=== PATIENT | male | born 1970 | race African-American/Black ===

== ENCOUNTER 2022-09-28 09:02 | Inpatient (IN) | payer OTHER ==
[2022-09-28 09:54] VITALS: BMI 24.6
[2022-09-28 10:11] LABS: VENOUS BASE EXCESS 5.5 mmol/L (-2-2); VENOUS O2 SATURATION 92.7 % (70-80); VENOUS PCO2 37.1 mmHg (38-52); VENOUS PH 7.506 (7.310-7.410)
[2022-09-28 10:17] LABS: BASO % 0.7 % (0-2.0); EOS % 0.7 % (0-4.5); HEMATOCRIT 37.4 % (35.4-49); HEMOGLOBIN 12.4 GM/dL (11.7-16.9); LYMPH % 8.5 % (8-40); MCH 26.1 pg (25.7-33.7); MCHC 33.1 g/dl (32.0-35.9); MEAN CELL VOLUME 78.9 fl (80-96); MEAN PLT VOLUME 8.9 fl (7.5-11.1); MONO % 5.1 % (3.8-10.2); PLATELET COUNT 329 10^3/uL (134-434); RBC 4.74 M/mm3 (4.00-5.60); RDW 15.6 % (11.9-15.9); WHITE BLOOD COUNT 11.7 K/mm3 (4.0-10.0)
[2022-09-28] MEDS ORDERED: LOSARTAN POTASSIUM 50 MG TABLET ONE ×2 (10:39→10:50)
[2022-09-28] MEDS ORDERED: amLODIPine BESYLATE 10 MG TABLET (FP) ONE ×2 (10:39→10:50)
[2022-09-28 10:40] LABS: EPI CELLS 4 /uL (0-25.1); HYALINE CASTS 1 /uL (0-3.1); PH,URINE 8.5 (5.0-8.0); URINE APPEARANCE CLEAR; URINE BACTERIA >9,000 /uL (0-1359); URINE BILIRUBIN NEGATIVE (NEGATIVE); URINE COLOR YELLOW; URINE GLUCOSE (UA) NEGATIVE (NEGATIVE); URINE KETONE NEGATIVE (NEGATIVE); URINE LEUK ESTERASE 2+ (NEGATIVE); URINE NITRITE NEGATIVE (NEGATIVE); URINE PROTEIN 1+ (NEGATIVE); URINE RBC 43 /uL (0-23.9); URINE UROBILINOGEN 0.2 mg/dL (0.2-1.0); URINE WBC 143 /uL (0-25.8)
[2022-09-28 10:44] LABS: POTASSIUM 3.6 mmol/L (3.5-5.1)
[2022-09-28] MEDS ORDERED: LOSARTAN POTASSIUM 50 MG TABLET PEG ONE (10:45)
[2022-09-28] MEDS ORDERED: amLODIPine BESYLATE 10 MG TABLET (FP) PEG ONE (10:45)
[2022-09-28 10:46] LABS: ALBUMIN 3.5 g/dl (3.4-5.0); BLOOD UREA NITROGEN 18.2 mg/dL (7-18); CALCIUM 9.9 mg/dL (8.5-10.1); MAGNESIUM 1.9 mg/dL (1.8-2.4)
[2022-09-28 10:51] LABS: BILIRUBIN,TOTAL 0.7 mg/dL (0.2-1); TOT PROT 7.4 g/dl (6.4-8.2)
[2022-09-28] MEDS ORDERED: ASPIRIN 81 MG CHEWABLE TABLETS PEG ONE (11:20)
[2022-09-28] MEDS ORDERED: CEFTRIAXONE 1,000 MG in DEXTROSE 5%-WATER - 50 ML IVPB ONE (11:20)
[2022-09-28] MEDS ORDERED: ACETAMINOPHEN 1000 MG/100 ML BAG IVPB ONE (11:20)
[2022-09-28] MEDS ORDERED: ACETAMINOPHEN INJECTION 100 ML IVPB ONE (11:45)
[2022-09-28] MEDS ORDERED: CEFTRIAXONE 1 GM/50 ML BAG ONE (11:45)
[2022-09-28] MEDS ORDERED: ASPIRIN 81 MG CHEWABLE TABLETS ONE ×3 (11:45→15:45)
[2022-09-28] MEDS ORDERED: FAMOTIDINE 10 MG/ML VIAL IVPB ONE (11:46)
[2022-09-28] MEDS ORDERED: FAMOTIDINE 20 MG/50 ML IVPB 20 MG/50 ML MG IVPB ONE (12:13)
[2022-09-28] MEDS: LOSARTAN POTASSIUM 50 MG TABLET GT SCH (15:38)
[2022-09-28] MEDS ORDERED: hydrALAZINE HCL 25 MG TABLET (FP) ONE (15:43)
[2022-09-28] MEDS ORDERED: BACLOFEN 10 MG TABLET (FP) ONE (15:44)
[2022-09-28] MEDS ORDERED: hydrALAZINE HCL 50 MG TABLET (FP) ONE (15:44)
[2022-09-28] MEDS: hydrALAZINE HCL 25 MG TABLET (FP) GT SCH ×3 (15:52→22:45)
[2022-09-28] MEDS: ASPIRIN 81 MG CHEWABLE TABLETS GT SCH (15:53)
[2022-09-28] MEDS: BACLOFEN 10 MG TABLET (FP) GT SCH ×2 (15:53→22:45)
[2022-09-28] MEDS ORDERED: levETIRAcetam 500 MG/5 ML INJECTION VIAL IVPB ONE ×2 (19:18→22:15)
[2022-09-28] MEDS ORDERED: TAMSULOSIN HCL 0.4 MG CAP PO SCH (22:00)
[2022-09-28] MEDS: ATORVASTATIN CA 40 MG TABLET (FP) GT SCH (22:45)
[2022-09-28] MEDS: FAMOTIDINE 20 MG/2.5 ML ORAL LIQUID GT SCH (22:45)
[2022-09-28] MEDS: HEPARIN NA (PORCINE) 5,000 UNITS/ML 1ML VIAL SQ SCH (22:46)
[2022-09-29] MEDS: BACLOFEN 10 MG TABLET (FP) GT SCH ×3 (06:04→21:41)
[2022-09-29] MEDS: hydrALAZINE HCL 25 MG TABLET (FP) GT SCH ×3 (06:04→21:42)
[2022-09-29 08:21] LABS: BASO % 0.9 % (0-2.0); EOS % 2.1 % (0-4.5); HEMATOCRIT 37.7 % (35.4-49); HEMOGLOBIN 12.1 GM/dL (11.7-16.9); LYMPH % 9.7 % (8-40); MCH 26.3 pg (25.7-33.7); MCHC 32.2 g/dl (32.0-35.9); MEAN CELL VOLUME 81.6 fl (80-96); MEAN PLT VOLUME 10.1 fl (7.5-11.1); NEUT % 80.3 % (42.8-82.8); PLATELET COUNT 305 10^3/uL (134-434); RBC 4.62 M/mm3 (4.00-5.60); RDW 15.8 % (11.9-15.9); WHITE BLOOD COUNT 8.9 K/mm3 (4.0-10.0)
[2022-09-29 08:45] LABS: POTASSIUM 3.5 mmol/L (3.5-5.1)
[2022-09-29 08:47] LABS: CALCIUM 9.7 mg/dL (8.5-10.1)
[2022-09-29 08:48] LABS: ALBUMIN 3.3 g/dl (3.4-5.0); BLOOD UREA NITROGEN 16.7 mg/dL (7-18)
[2022-09-29 08:53] LABS: BILIRUBIN,TOTAL 1.4 mg/dL (0.2-1)
[2022-09-29] MEDS: LOSARTAN POTASSIUM 50 MG TABLET GT SCH (09:18)
[2022-09-29] MEDS: HEPARIN NA (PORCINE) 5,000 UNITS/ML 1ML VIAL SQ SCH ×2 (09:18→21:42)
[2022-09-29] MEDS: amLODIPine BESYLATE 10 MG TABLET (FP) GT SCH (09:18)
[2022-09-29] MEDS: FAMOTIDINE 20 MG/2.5 ML ORAL LIQUID GT SCH ×2 (09:18→21:41)
[2022-09-29] MEDS: ASPIRIN 81 MG CHEWABLE TABLETS GT SCH (09:18)
[2022-09-29] MEDS ORDERED: FAMOTIDINE 40 MG/5 ML ORAL SUSPENSION PEG ONE (11:20)
[2022-09-29] MEDS ORDERED: SODIUM CHLORIDE 0.45%/POT 20 MEQ/1,000 ML INFUS.BAG IV SCH (13:15)
[2022-09-29] MEDS: CEFTRIAXONE 1 GM in DEXTROSE 5%-WATER - 50 ML IVPB SCH (13:56)
[2022-09-29] MEDS: ATORVASTATIN CA 40 MG TABLET (FP) GT SCH (21:42)
[2022-09-29] MEDS: METOPROLOL TARTRATE 25 MG TABLET (FP) GT SCH (21:43)
[2022-09-29] MEDS ORDERED: METOPROLOL TARTRATE 25 MG TABLET (FP) PO SCH (22:00)
[2022-09-30] MEDS: hydrALAZINE HCL 25 MG TABLET (FP) GT SCH ×3 (06:01→21:54)
[2022-09-30] MEDS: BACLOFEN 10 MG TABLET (FP) GT SCH ×3 (06:01→21:53)
[2022-09-30 08:06] LABS: POTASSIUM 3.8 mmol/L (3.5-5.1)
[2022-09-30 08:08] LABS: CALCIUM 9.4 mg/dL (8.5-10.1)
[2022-09-30 08:09] LABS: ALBUMIN 3.1 g/dl (3.4-5.0); BLOOD UREA NITROGEN 17.9 mg/dL (7-18)
[2022-09-30 08:13] LABS: TOT PROT 6.6 g/dl (6.4-8.2)
[2022-09-30 08:18] LABS: BILIRUBIN,TOTAL 0.8 mg/dL (0.2-1)
[2022-09-30] MEDS: CEFTRIAXONE 1 GM in DEXTROSE 5%-WATER - 50 ML IVPB SCH (10:15)
[2022-09-30] MEDS: levETIRAcetam 500 MG/5 ML ORAL SOLUTION (UNIT-DOSE CUPS) PO SCH ×2 (10:16→21:54)
[2022-09-30] MEDS: METOPROLOL TARTRATE 25 MG TABLET (FP) GT SCH (10:16)
[2022-09-30] MEDS: HEPARIN NA (PORCINE) 5,000 UNITS/ML 1ML VIAL SQ SCH ×2 (10:16→21:52)
[2022-09-30] MEDS: ASPIRIN 81 MG CHEWABLE TABLETS GT SCH (10:16)
[2022-09-30] MEDS: amLODIPine BESYLATE 10 MG TABLET (FP) GT SCH (10:16)
[2022-09-30] MEDS: LOSARTAN POTASSIUM 50 MG TABLET GT SCH (10:16)
[2022-09-30] MEDS: FAMOTIDINE 20 MG/2.5 ML ORAL LIQUID GT SCH ×2 (10:16→21:57)
[2022-09-30] MEDS: METOPROLOL TARTRATE 50 MG TABLET (FP) GT SCH (21:53)
[2022-09-30] MEDS: ATORVASTATIN CA 40 MG TABLET (FP) GT SCH (21:53)
[2022-10-01] MEDS: hydrALAZINE HCL 25 MG TABLET (FP) GT SCH ×3 (06:27→22:38)
[2022-10-01] MEDS: BACLOFEN 10 MG TABLET (FP) GT SCH ×3 (06:27→22:37)
[2022-10-01] MEDS: METOPROLOL TARTRATE 50 MG TABLET (FP) GT SCH ×2 (10:30→22:38)
[2022-10-01] MEDS: levETIRAcetam 500 MG/5 ML ORAL SOLUTION (UNIT-DOSE CUPS) PO SCH ×2 (10:30→22:37)
[2022-10-01] MEDS: amLODIPine BESYLATE 10 MG TABLET (FP) GT SCH (10:30)
[2022-10-01] MEDS: ASPIRIN 81 MG CHEWABLE TABLETS GT SCH (10:30)
[2022-10-01] MEDS: FAMOTIDINE 20 MG/2.5 ML ORAL LIQUID GT SCH ×2 (10:30→22:37)
[2022-10-01] MEDS: CEFTRIAXONE 1 GM in DEXTROSE 5%-WATER - 50 ML IVPB SCH (10:30)
[2022-10-01] MEDS: HEPARIN NA (PORCINE) 5,000 UNITS/ML 1ML VIAL SQ SCH ×2 (10:30→22:36)
[2022-10-01] MEDS: LOSARTAN POTASSIUM 50 MG TABLET GT SCH (10:30)
[2022-10-01] MEDS: ATORVASTATIN CA 40 MG TABLET (FP) GT SCH (22:38)
[2022-10-02] MEDS: hydrALAZINE HCL 25 MG TABLET (FP) GT SCH ×2 (06:38→15:00)
[2022-10-02] MEDS: BACLOFEN 10 MG TABLET (FP) GT SCH ×2 (06:38→15:00)
[2022-10-02] MEDS: amLODIPine BESYLATE 10 MG TABLET (FP) GT SCH (10:45)
[2022-10-02] MEDS: FAMOTIDINE 20 MG/2.5 ML ORAL LIQUID GT SCH (10:45)
[2022-10-02] MEDS: ASPIRIN 81 MG CHEWABLE TABLETS GT SCH (10:45)
[2022-10-02] MEDS: CEFTRIAXONE 1 GM in DEXTROSE 5%-WATER - 50 ML IVPB SCH (10:45)
[2022-10-02] MEDS: LOSARTAN POTASSIUM 50 MG TABLET GT SCH (10:45)
[2022-10-02] MEDS: levETIRAcetam 500 MG/5 ML ORAL SOLUTION (UNIT-DOSE CUPS) PO SCH (10:45)
[2022-10-02] MEDS: METOPROLOL TARTRATE 50 MG TABLET (FP) GT SCH (10:45)
[2022-10-02] MEDS: HEPARIN NA (PORCINE) 5,000 UNITS/ML 1ML VIAL SQ SCH (10:50)
[2022-10-02 15:29] VITALS: BP 144/109; PULSE 81; RESP 18; TEMP 98.5
== END 2022-10-02 18:55 | DRG 53 ==
LOC: JER 09:02 → JERBED 11:51 → J4W 16:50
PROVIDERS: ADMIT Family Medicine; ATTEND Family Medicine
DX: R56.9 Unspecified convulsions (principal); I24.8 Other forms of acute ischemic heart disease; R47.01 Aphasia; Z93.1 Gastrostomy status; E78.5 Hyperlipidemia, unspecified; K21.9 Gastro-esophageal reflux disease without esophagitis; N39.0 Urinary tract infection, site not specified; R00.0 Tachycardia, unspecified; B96.1 Klebsiella pneumoniae [K. pneumoniae] as the cause of diseases classified elsewhere
CPT/HCPCS: 0241U-QW; 36415; 70450-TC; 71045-TC-FY; 80053; 81003; 82550; 82553; 82803; 82962; 83605; 83735; 84484; 85025; 87040; 87086; 87186; 93005; 93010; 97116-GP; 97162-GP; 99285-25; J0475; J1644; J3480

== ENCOUNTER 2023-07-06 12:15 | Observation (INO) | payer OTHER ==
[2023-07-06] MEDS ORDERED: hydrALAZINE HCL 20 MG/ML VIAL ONE (14:26)
[2023-07-06] MEDS ORDERED: METOPROLOL TARTRATE 5 MG/5 ML VIAL IVPUSH PRN (14:40)
[2023-07-06] MEDS ORDERED: hydrALAZINE HCL 20 MG/ML VIAL IM PRN (14:40)
[2023-07-06] MEDS: hydrALAZINE HCL 20 MG/ML VIAL IVPUSH ONE (15:00)
[2023-07-06 15:04] LABS: BASO % 0.6 % (0-2.0); EOS % 2.9 % (0-4.5); HEMATOCRIT 43.3 % (35.4-49); HEMOGLOBIN 13.9 GM/dL (11.7-16.9); LYMPH % 9.9 % (8-40); MCH 25.9 pg (25.7-33.7); MCHC 32.2 g/dl (32.0-35.9); MEAN CELL VOLUME 80.5 fl (80-96); MEAN PLT VOLUME 9.4 fl (7.5-11.1); MONO % 6.6 % (3.8-10.2); PLATELET COUNT 247 10^3/uL (134-434); RBC 5.38 M/mm3 (4.00-5.60); RDW 16.9 % (11.9-15.9); WHITE BLOOD COUNT 10.6 K/mm3 (4.0-10.0)
[2023-07-06 15:10] LABS: INR 1.11 (0.83-1.09); PROTHROMBIN TIME (PATIENT) 12.9 SEC (9.7-13.0)
[2023-07-06 15:13] LABS: ACTIVATED PTT 31.7 SECONDS (25.2-36.5)
[2023-07-06 15:21] LABS: POTASSIUM 3.4 mmol/L (3.5-5.1)
[2023-07-06 15:22] LABS: CALCIUM 9.3 mg/dL (8.5-10.1)
[2023-07-06 15:24] LABS: ALBUMIN 3.4 g/dl (3.4-5.0)
[2023-07-06] MEDS: AMINO ACIDS 4.25%/D5W 1,000 ML IV ONE (15:26)
[2023-07-06 15:27] LABS: CREATININE 0.9 mg/dL (0.55-1.3)
[2023-07-06 15:28] LABS: BILIRUBIN,TOTAL 0.7 mg/dL (0.2-1); TOT PROT 7.6 g/dl (6.4-8.2)
[2023-07-06] MEDS ORDERED: ACETAMINOPHEN INJECTION 100 ML IVPB ONE (16:41)
[2023-07-06] MEDS: ACETAMINOPHEN 1000 MG/100 ML BAG IVPB ONE (16:49)
[2023-07-06 21:14] VITALS: RESP 18; BMI 27.1
[2023-07-06] MEDS: ENOXAPARIN NA (PORCINE) 40 MG/0.4 ML DISP.SYRIN SQ SCH (22:44)
[2023-07-06] MEDS: levETIRAcetam 500 MG/5 ML INJECTION VIAL IVPB SCH (22:44)
[2023-07-07] MEDS: D5-1/2NS+20 MEQ KCL - 20 MEQ/1,000 ML INFUS.BAG IV SCH (00:36)
[2023-07-07] MEDS ORDERED: METOPROLOL TARTRATE 5 MG/5 ML VIAL IVPUSH PRN (06:52)
[2023-07-07] MEDS ORDERED: hydrALAZINE HCL 20 MG/ML VIAL IVPB PRN (06:56)
[2023-07-07] MEDS: METOPROLOL TARTRATE 5 MG/5 ML VIAL IVPB PRN (07:08)
[2023-07-07] MEDS: PANTOPRAZOLE SODIUM 40 MG VIAL IVPUSH SCH (09:52)
[2023-07-07 09:58] LABS: BASO % 0.5 % (0-2.0); EOS % 1.3 % (0-4.5); HEMATOCRIT 40.2 % (35.4-49); HEMOGLOBIN 12.9 GM/dL (11.7-16.9); LYMPH % 11.2 % (8-40); MCH 25.9 pg (25.7-33.7); MCHC 32.2 g/dl (32.0-35.9); MEAN CELL VOLUME 80.4 fl (80-96); MONO % 7.8 % (3.8-10.2); NEUT % 79.2 % (42.8-82.8); PLATELET COUNT 233 10^3/uL (134-434); RDW 16.8 % (11.9-15.9); WHITE BLOOD COUNT 11.4 K/mm3 (4.0-10.0)
[2023-07-07 10:17] LABS: POTASSIUM 3.1 mmol/L (3.5-5.1)
[2023-07-07 10:22] LABS: ALBUMIN 3.1 g/dl (3.4-5.0); BLOOD UREA NITROGEN 18.6 mg/dL (7-18); MAGNESIUM 1.8 mg/dL (1.8-2.4)
[2023-07-07 10:25] LABS: CREATININE 0.9 mg/dL (0.55-1.3)
[2023-07-07 10:26] LABS: BILIRUBIN,TOTAL 1.1 mg/dL (0.2-1); TOT PROT 6.7 g/dl (6.4-8.2)
[2023-07-08 11:16] LABS: POTASSIUM 3.2 mmol/L (3.5-5.1)
[2023-07-08 11:24] LABS: CREATININE 0.9 mg/dL (0.55-1.3)
[2023-07-08] MEDS: hydrALAZINE HCL 25 MG TABLET (FP) GT SCH (13:26)
[2023-07-08] MEDS: LOSARTAN POTASSIUM 50 MG TABLET GT SCH (13:26)
[2023-07-08] MEDS: amLODIPine BESYLATE 10 MG TABLET (FP) GT SCH (13:26)
[2023-07-08] MEDS ORDERED: POTASSIUM CHLORIDE TABS 20 MEQ TABLET.ER (FP) PO ONE (14:01)
[2023-07-08] MEDS: POTASSIUM CHLORIDE ORAL LIQUID 20 MEQ/15 ML PEG ONE (16:06)
[2023-07-08] MEDS: levETIRAcetam 500 MG/5 ML ORAL SOLUTION (UNIT-DOSE CUPS) PO SCH (22:53)
[2023-07-09 12:43] VITALS: BP 141/99; PULSE 82
[2023-07-09 14:14] VITALS: TEMP 98.3
== END 2023-07-09 13:00 ==
LOC: JER 12:15 → JERBED 14:17 → J5S 19:51
PROVIDERS: ADMIT Family Medicine; ATTEND Family Medicine
PROC: 3E033GC Introduction of Other Therapeutic Substance into Peripheral Vein, Percutaneous Approach (ICD-10-PCS; principal; 2023-07-06)
PROC: 3E033NZ Introduction of Analgesics, Hypnotics, Sedatives into Peripheral Vein, Percutaneous Approach (ICD-10-PCS; 2023-07-06)
PROC: 3E023GC Introduction of Other Therapeutic Substance into Muscle, Percutaneous Approach (ICD-10-PCS; 2023-07-06)
PROC: 0D20XUZ Change Feeding Device in Upper Intestinal Tract, External Approach (ICD-10-PCS; 2023-07-06)
DX: K94.23 Gastrostomy malfunction (principal); I10 Essential (primary) hypertension; Z86.73 Personal history of transient ischemic attack (TIA), and cerebral infarction without residual deficits; E78.00 Pure hypercholesterolemia, unspecified; E87.6 Hypokalemia; R56.9 Unspecified convulsions
CPT/HCPCS: 36415; 49450; 71045-TC-FY; 74018-TC-FY; 80048; 80053; 83036; 83735; 84443; 85025; 85610; 85730; 86850; 86900; 86901; 87635; 93005; 93010; 99285-25; G0378; J0131

== ENCOUNTER 2023-10-02 07:26 | Emergency (ER) | payer OTHER ==
[2023-10-02 07:46] VITALS: TEMP 97.9; BMI 23.5
[2023-10-02 09:15] LABS: BASO % 0.7 % (0-2.0); EOS % 3.8 % (0-4.5); HEMOGLOBIN 13.3 GM/dL (11.7-16.9); LYMPH % 14.6 % (8-40); MCH 26.8 pg (25.7-33.7); MEAN CELL VOLUME 78.7 fl (80-96); MEAN PLT VOLUME 9.4 fl (7.5-11.1); MONO % 7.7 % (3.8-10.2); NEUT % 73.2 % (42.8-82.8); PLATELET COUNT 327 10^3/uL (134-434); RBC 4.96 M/mm3 (4.00-5.60); RDW 16.8 % (11.9-15.9); WHITE BLOOD COUNT 8.4 K/mm3 (4.0-10.0)
[2023-10-02 09:18] LABS: INR 1.11 (0.83-1.09); PROTHROMBIN TIME (PATIENT) 12.7 SEC (9.7-13.0)
[2023-10-02 09:20] LABS: ACTIVATED PTT 34.2 SECONDS (25.2-36.5)
[2023-10-02 09:31] LABS: POTASSIUM 3.8 mmol/L (3.5-5.1)
[2023-10-02 09:34] LABS: ALBUMIN 3.2 g/dl (3.4-5.0); CALCIUM 9.6 mg/dL (8.5-10.1)
[2023-10-02 09:35] LABS: BLOOD UREA NITROGEN 21.2 mg/dL (7-18)
[2023-10-02 09:37] LABS: CREATININE 1.2 mg/dL (0.55-1.3)
[2023-10-02 09:39] LABS: BILIRUBIN,TOTAL 0.6 mg/dL (0.2-1); TOT PROT 7.3 g/dl (6.4-8.2)
[2023-10-02 11:33] VITALS: BP 142/68; PULSE 67; RESP 16
== END 2023-10-02 11:37 | disposition home or self-care (01) ==
LOC: JER 07:26
DX: K94.23 Gastrostomy malfunction (principal)
CPT/HCPCS: 36415; 49450; 80053; 85025; 85610; 85730; 86850; 86900; 86901; 93005; 93010; 99285-25

== ENCOUNTER 2023-10-21 06:31 | Emergency (ER) | payer OTHER ==
[2023-10-21 06:42] VITALS: BMI 26.7
[2023-10-21 09:59] VITALS: RESP 18
[2023-10-21 10:09] VITALS: TEMP 99
[2023-10-21 16:45] VITALS: BP 153/89; PULSE 72
== END 2023-10-21 17:00 ==
LOC: JER 06:31
PROC: 0D20XUZ Change Feeding Device in Upper Intestinal Tract, External Approach (ICD-10-PCS; principal; 2023-10-21)
DX: K94.23 Gastrostomy malfunction (principal); I69.320 Aphasia following cerebral infarction; I10 Essential (primary) hypertension
CPT/HCPCS: 49440; 99283-25